=== PATIENT | male | born 1980 | race Caucasian/White ===

== ENCOUNTER 2020-03-29 23:30 | Emergency (ER) | payer BC, MEDICAID ==
[~2020-03-29] VITALS: Ht 172.7 cm; Wt 84.0 kg
[2020-03-29 23:33] VITALS: BP 152/101
[2020-03-30 00:09] LABS: BASOPHILS % (AUTO) 0.5 % (0-1); EOSINOPHILS # (AUTO) 0.1 X10'3 (0-0.9); EOSINOPHILS % (AUTO) 1.7 % (0-6); HEMATOCRIT 43.3 % (42.0-52.0); HEMOGLOBIN 15.7 g/dl (14.0-17.9); LYMPHOCYTES # (AUTO) 2.4 X10'3 (1.1-4.8); LYMPHOCYTES % (AUTO) 30.3 % (21-51); MEAN CORPUSCULAR HEMOGLOBIN 32.5 PG (27.0-31.0); MEAN CORPUSCULAR HGB CONC 36.4 g/dL (33.0-36.5); MEAN CORPUSCULAR VOLUME 89.3 FL (78-98); MEAN PLATELET VOLUME 10.7 FL (7.4-10.4); MONOCYTES # (AUTO) 0.7 X10'3 (0-0.9); MONOCYTES % (AUTO) 9.1 % (2-12); NEUTROPHILS # (AUTO) 4.6 X10'3 (1.8-7.7); NEUTROPHILS % (AUTO) 58.4 % (42-75); PLATELET COUNT 140 X10'3 (140-440); RED BLOOD COUNT 4.85 X10'6 (4.70-6.10); RED CELL DISTRIBUTION WIDTH 14.2 % (11.5-14.5); WHITE BLOOD COUNT 7.9 X10'3 (4.5-11.0)
[2020-03-30 00:18] LABS: ALANINE AMINOTRANSFERASE 28 U/L (12-78); ALBUMIN 4.2 G/DL (3.4-5.0); ALBUMIN/GLOBULIN RATIO 1.4 (1.1-1.5); ALKALINE PHOSPHATASE 79 IU/L (46-116); ANION GAP 7 (8-16); ASPARTATE AMINO TRANSFERASE 14 U/L (10-37); BILIRUBIN,TOTAL 2.1 MG/DL (0.1-1.0); BLOOD UREA NITROGEN 16 MG/DL (7-18); BUN/CREATININE RATIO 14.4 (5.4-32.0); CALCIUM 8.2 MG/DL (8.5-10.1); CHLORIDE 108 MMOL/L (99-107); CREATININE 1.11 MG/DL (0.60-1.10); GLUCOSE 84 MG/DL (70-104); POTASSIUM 3.8 MMOL/L (3.5-5.1); SODIUM 145 MMOL/L (135-145); TOTAL CARBON DIOXIDE 29.7 MMOL/L (24-32); TOTAL PROTEIN 7.2 G/DL (6.4-8.2); eGFR 74 ML/MIN
[2020-03-30] MEDS ORDERED: OLANZapine 5mg rapidly disint. tablet PO ONE (00:20)
[2020-03-30 00:22] LABS: URINE AMPHETAMINE SCREEN NEGATIVE (Neg); URINE BARBITUATE SCREEN NEGATIVE (Neg); URINE BENZODIAZEPINES SCREEN NEGATIVE (Neg); URINE CANNABINOID SCREEN NEGATIVE (Neg); URINE COCAINE SCREEN NEGATIVE (Neg); URINE METHADONE SCREEN NEGATIVE (Neg); URINE OPIATE SCREEN NEGATIVE (Neg); URINE PHENCYCLIDINE SCREEN NEGATIVE (Neg)
[2020-03-30 00:32] LABS: ETHANOL < 0.010 GM/DL (0.0-0.010)
--- NOTE | 2020-03-30 06:18 | NUR ---
5150 by SHANELL. Neighbors called, standing in the middle of street almost naked, yelling. My son is missing (Ex- has son). Denies HI,SI. Confused and still looking for son.
--- NOTE | 2020-03-30 06:37 | NUR ---
Patient resting on right side. No distress observed. Continue to monitor.
[2020-03-30 07:17] LABS: CLARITY,URINE SLIGHTLY CLOUDY (Clear)
[2020-03-30 07:20] LABS: COLOR,URINE AMBER (Yellow); UA COLLECTION TYPE CLN CATCH MIDSTREAM
[2020-03-30 07:23] LABS: BACTERIA,URINE FEW /HPF (Neg); CAL OXALATE CRYSTALS FEW /HPF (NEGATIVE); MUCUS STRANDS MODERATE /LPF (Neg); RBC,URINE 0-2 /HPF (0-2); SQUAMOUS EPITHELIAL CELL,UR FEW /LPF (FEW); WBC,URINE 0-4 /HPF (0-4)
[2020-03-30 07:24] LABS: FINE GRANULAR CAST 0-3 /LPF (NEGATIVE)
--- NOTE | 2020-03-30 08:10 | NUR ---
Patient wanting to leave, RN explained that he is on a Legal Hold and cannot be released until he is evaluated by [facility]. Patient upset. RN asked what medication he is on. Patient states he is taking Depakote and relutantly told me he was on med twice a day but would not tell me the dose. RN asked patient why he is on depakote. Patient got upset and wouldn't talk to RN. RN asked if he had a history of schizophrenia. Patient would not respond. Continue to monitor.
--- NOTE | 2020-03-30 09:35 | NUR ---
Patient sleeping supine in bed. No distress observed. Continue to monitor.
--- NOTE | 2020-03-30 11:35 | NUR ---
KIRTI FROM [facility] EVALUATED PT AND WILL BE RELEASING THE HOLD AND D/C PT TO GO BACK HOME. WAITING D/C PAPERS.
== END 2020-03-30 12:15 | disposition home or self-care (01) ==
LOC: ER 23:31
DX: F29 Unspecified psychosis not due to a substance or known physiological condition (principal)
CPT/HCPCS: 36415; 80053; 80305; 80320; 81001; 85025; 99285